=== PATIENT | male | born 1970 | race Caucasian/White ===

== ENCOUNTER 2021-09-12 08:54 | Outpatient (CLI) | payer OTHER, SELFPAY ==
--- NOTE | 2021-09-12 09:15 | MR_ITS ---
Final Report Patient: WAYNE SWANN Facility:?[facility] Patient ID:?[id number] Site Patient ID:?[id number]. Site :?[id number] Study:?MRI Spine Lumbar W/O-09/12/2021 9:53:59 AM Ordering Physician:Yumi Francisco Final Report: Indication: Lumbar spine pain with radiculopathy. Technique: T2, T1, and STIR sagittal as well as T1 and T2 axial sequences were obtained. No IV contrast. Comparison: Lumbar spine MRI 05/25/2016. Findings: There are 5 lumbar-type vertebral segments identified. The vertebral body heights are maintained without evidence of fracture. No marrow infiltrative process. Straightening of the lumbar lordosis. Inferior endplate Schmorl`s node at L4. The conus medullaris terminates at T12-L1, normal. Cauda equina appears unremarkable. T12-L1: No spinal canal or neural foraminal stenosis. L1-2: Mild disc height loss this occasion. Minimal disc bulge without spinal canal or neural foraminal narrowing. L2-3: Mild disc height loss and desiccation. Mild disc bulge couple ligamentum flavum thickening in facet hypertrophy resulting in mild spinal canal narrowing. It is stable. L3-4: Mild disc height loss and desiccation. Mild disc bulge coupled with ligamentum flavum thickening and facet hypertrophy resulting in mild spinal canal narrowing. No neural foraminal narrowing. Stable. L4-5: Moderate disc height loss and desiccation. Opposing endplate fatty marrow degenerative change. Interval development of a left subarticular disc protrusion which compresses the descending left L5 nerve. Mild right neural foraminal narrowing secondary to disc bulging facet hypertrophy. Left neural foramina is patent. L5-S1: Moderate disc height loss and desiccation. Postsurgical changes of right hemilaminectomy. Postsurgical changes of right lateral recess micro discectomy, with significantly improved previously noted right subarticular disc extrusion. Abnormal signal may represent granulation tissue or recurrent disc protrusion. This abuts the descending right S1 nerve. No neural foraminal narrowing. Mild sacroiliac joint osteoarthritis. Left renal cysts. Impression: 1. At L4-5, new left subarticular disc protrusion compressing the descending left L5 nerve. Mild right neural foraminal narrowing. 2. At L5-S1, postsurgical changes of right hemilaminectomy with microdiscectomy. Significantly improved right subarticular disc extrusion. Abnormal signal in the right lateral recess could represent recurrent/residual disc protrusion or granulation tissue abutting the descending right S1 nerve. 3. Stable milder degenerative changes throughout the remaining lumbar spine. Dictated by Mickey Mcpherson MD @ 09/12/2021 2:57:55 PM (Electronic Signature)
== END 2021-09-12 08:55 | disposition home or self-care (01) ==
LOC: MRI 08:54
PROVIDERS: PCP Physician Assistant Medical; Visit Provider Physician Assistant Medical
DX: M54.16 Radiculopathy, lumbar region (principal); M51.26 Other intervertebral disc displacement, lumbar region; M54.50 Low back pain, unspecified
CPT/HCPCS: 72148

== ENCOUNTER 2021-10-16 16:26 | Outpatient (CLI) | payer OTHER, SELFPAY ==
[2021-10-16 21:26] LABS: Chloride* 105 mmol/L (96-114); Potassium* 4.1 mmol/L (3.6-5.1); Sodium* 138 mmol/L (135-149)
[2021-10-16 21:29] LABS: Blood Urea Nitrogen* 16 mg/dL (7-30); Calcium* 9.7 mg/dL (8.4-10.6); Carbon Dioxide* 28 mmol/L (20-32); Creatinine* 0.9 mg/dL (0.5-1.5); Estimated Glomerular Filt Rate 103 ml/min; Glucose* 99 mg/dL (60-115)
== END 2021-10-16 16:27 | disposition home or self-care (01) ==
PROVIDERS: PCP Physician Assistant Medical; Visit Provider Physician Assistant Medical
DX: Z01.818 Encounter for other preprocedural examination (principal)
CPT/HCPCS: 80048; 87081; 87641

== ENCOUNTER 2021-11-20 10:08 | Emergency (ER) | payer OTHER, SELFPAY ==
[2021-11-20 10:15] VITALS: BP 157/111
--- NOTE | 2021-11-20 10:22 | CRLHL7_ITS ---
For Patients: As a result of the Century Cures Act, medical imaging exams and procedure reports are released immediately into your electronic medical record. You may view this report before your referring provider. If you have questions, please contact your health care provider. INDICATION: INJURY. FINGER VS TRAILOR HITCH TECHNIQUE: Finger radiographs 3 views COMPARISON: None FINDINGS: Bones: Alignment is normal. No acute fractures or aggressive bone lesions are identified. Joint spaces: The metacarpophalangeal and interphalangeal joints are normal in appearance. Soft tissues: Soft tissue injury at distal margin of the right 2nd finger. No radiopaque soft tissue foreign body. IMPRESSION: 1. Right 2nd finger soft tissue injury. No acute fracture or soft tissue foreign body. Dictated by Raul Abraham MD @ 11/20/2021 11:11:01 AM Dictated by: Raul Abraham MD @ 11/20/2021 11:11:08 (Electronically Signed)
[2021-11-20] MEDS: HYDROCODONE/ACETAMIN 7.5-325 TABLET 1 TAB PO (10:25)
[2021-11-20 10:27] VITALS: BP 157/111; PULSE 94; TEMP 37.1; O2SAT 98; BMI 29.5
--- NOTE | 2021-11-20 10:29 | ED.NURSE ---
Pt R index finger wound soaking in sterile water and hibiclens.
[2021-11-20] MEDS: TETANUS/DIPHTH/PERTUSSIS 0.5 ML SYRINGE IM (10:33)
[2021-11-20] MEDS: cephALEXin 500 MG CAPSULE PO (10:33)
[2021-11-20 10:40] VITALS: BP 144/102
--- NOTE | 2021-11-20 10:40 | ED.NURSE ---
in to bandage lac on pt R index finger. Wound packed with gelfoam and wrapped with gauze.
--- NOTE | 2021-11-20 10:43 | ED_ITS ---
HPI - General Adult General Time Seen by Provider: 10:43 Date Seen: 11/20/21 Chief complaint: Laceration/Wound Stated complaint: cut off tip of right pointer finger Time Seen by Provider: 11/20/21 10:22 Source: patient Mode of arrival: ambulatory Limitations: no limitations History of Present Illness HPI narrative: Patient is a 51 year white male who cut off the pad of his index finger on the right when he got caught between a ice fishing house trailer. He does not really feel like he hurt the bone but avulsed the pad from about the D IP joint to the tip he comes in with that wrapped. He is unsure of last tetanus shot he has been pretty healthy in the past. , no history of wound healing issues. He does out of glass repair. They did bring in the chunk of skin which was avulsed. Related Data Home Medications Medication Instructions Recorded Confirmed bupropion HCl 150 mg tablet,12 hr mg PO BID 10/16/21 10/16/21 sustained-release cyclobenzaprine 10 mg tablet 10 mg PO .Bedtime as needed PRN 10/16/21 10/16/21 gabapentin 300 mg capsule mg PO TID 10/16/21 10/16/21 Previous Rx's Medication Instructions Recorded metoprolol succinate 25 mg 12.5 mg PO QDAY #45 tabs 10/16/21 tablet,extended release 24 hr cephalexin 500 mg capsule 500 mg PO QID #20 caps 11/20/21 cephalexin 500 mg capsule 500 mg PO QID #20 caps 11/20/21 hydrocodone 7.5 mg-acetaminophen 1 tab PO Q6-8H PRN pain #20 tabs 11/20/21 325 mg tablet hydrocodone 7.5 mg-acetaminophen 1 tab PO Q6H PRN pain #20 tabs 11/20/21 325 mg tablet Allergies Allergy/AdvReac Type Severity Reaction Status Date / Time No Known Allergies Allergy Unverified 10/16/21 15:47 Review of Systems Status of ROS: Reports: 6 or more systems reviewed and unremarkable except as noted in History and below [facility] Surgical History History of spinal surgery (06/2016) Family History Father High blood pressure Family/Other Coronary artery disease Social History Narrative: does not use illicit drugs occasional alcohol consumption smoker- approximately 1 pack per day Smoking Status: Current every day smoker What tobacco products do you use: cigarettes Do you use any of these nicotine containing products: None Second hand tobacco smoke exposure: No How often do you have a drink containing alcohol: 2-3 times a week How many standard drinks containing alcohol do you have on a typical day: 5 or 6 How often do you have six or more drinks on one occasion: Weekly AUDIT-C Alcohol total score: 8 Non-prescribed substance use: denies use Exam Narrative: Exam Narrative: Objective: The right index finger shows avulsion of skin non repairable of the D IP pad from just distal to the D IP joint volarly to the tip there is a good amount of soft tissue remaining, but he did avulse is fairly deeply, no obvious tendon or bone visualization. Procedure: After sterile soaking Gel-Foam placed over the finger pad and covered with quarter-inch gauze, he was given updated Tdap, Keflex 500 orally, [place] 7.5 mg now. Will check an x-ray of his finger. He will need to follow up with Orthopedics in the next 3-5 days. Light activity and light use of the hand. Will put a finger dressing on after confirming that there was no additional bleeding. Const: Vital Signs, click to edit/add: Vital Signs - 24 hr 11/20/21 10:27 Temperature 98.7 F Pulse Rate [Left] 94 Blood Pressure [Le ft Upper Arm] 157/111 H Pulse Oximetry 98 Oxygen Delivery Me thod Room Air Course Vital Signs Vital signs: Initial Vital Signs Temperature 98.7 F 11/20/21 10:27 Temperature Source Temporal Artery Scan 11/20/21 10:27 Pulse Rate 94 11/20/21 10:27 Blood Pressure 157/111 H 11/20/21 10:27 Blood Pressure Mean 126 11/20/21 10:27 Blood Pressure Position Supine 11/20/21 10:27 Pulse Oximetry 98 11/20/21 10:27 Oxygen Delivery Method 11/20/21 10:27 Vital Signs Temperature 98.7 F 11/20/21 10:27 Pulse Rate 94 11/20/21 10:27 Blood Pressure 157/111 H 11/20/21 10:27 Pulse Oximetry 98 11/20/21 10:27 Oxygen Delivery Method 11/20/21 10:27 Temperature 98.7 F 11/20/21 10:27 Pulse Rate 94 11/20/21 10:27 Blood Pressure 157/111 H 11/20/21 10:27 Pulse Oximetry 98 11/20/21 10:27 Oxygen Delivery Method 11/20/21 10:27 Medical Decision Making MDM Narrative Medical decision making narrative: The patient has on x-ray by my read no bony a abnormality, recommend follow-up in Ortho 3 days, Keflex and [place] as needed at home. Discharge Plan Discharge Clinical Impression: Avulsion of skin of index finger Patient Disposition: Home w/ Parent or Adult Condition: Stable Additional Instructions: Keep covered for 3 days, orthopedic followup at that time, Keflex 500 q.i.d. x5 days, [place] as needed for pain, do not drink or drive with the [place], may use Advil as well for discomfort. Elevate when at rest. Return sooner if problems or concerns. please schedule ortho appt with PA for 3 days Activity Level: Light activity Discharge Diet: Regular Prescriptions: New cephalexin 500 mg capsule 500 mg PO QID Qty: 20 0RF hydrocodone-acetaminophen 7.5-325 mg tablet 1 tab PO Q6H PRN (Reason: pain) Qty: 20 0RF cephalexin 500 mg capsule 500 mg PO QID Qty: 20 0RF hydrocodone-acetaminophen 7.5-325 mg tablet 1 tab PO Q6-8H PRN (Reason: pain) Qty: 20 0RF No Action gabapentin 300 mg capsule PO TID bupropion HCl 150 mg tablet sustained-release 12 hr PO BID Rx Instructions: take 1 tablet twice daily for smoking cessation cyclobenzaprine 10 mg tablet 10 mg PO .Bedtime as needed PRN Rx Instructions: Take 1 tablet nightly for muscle tightness. Muscle relaxant metoprolol succinate 25 mg tablet extended release 24 hr 12.5 mg PO QDAY Qty: 45 0RF Rx Instructions: 1/2 tablet for blood pressure Follow Up/Referrals: Maryam Armendariz PA-C [Primary Care Provider] - Stand Alone Forms: [facility] Info Instructions
[2021-11-20 11:20] VITALS: PULSE 78; O2SAT 98
--- NOTE | 2021-11-20 11:37 | ED.NURSE ---
Pt R index finger bandaged with tube gauze.
== END 2021-11-20 11:56 | disposition home or self-care (01) ==
PROVIDERS: Emergency Provider Family Medicine; PCP Physician Assistant Medical
DX: S61.208A Unspecified open wound of other finger without damage to nail, initial encounter (principal)
CPT/HCPCS: 73140; 90471; 90715; 99283; A9270

== ENCOUNTER 2021-12-01 07:48 | Outpatient (CLI) | payer OTHER, SELFPAY | END 2021-12-01 07:49 | disposition home or self-care (01) | PROVIDERS: PCP Physician Assistant Medical; Visit Provider Physician Assistant Surgical | DX: S61.200A Unspecified open wound of right index finger without damage to nail, initial encounter (principal); W23.0XXA Caught, crushed, jammed, or pinched between moving objects, initial encounter; F17.210 Nicotine dependence, cigarettes, uncomplicated | CPT/HCPCS: 11042; 99213 ==

== ENCOUNTER 2021-12-08 07:50 | Outpatient (CLI) | payer OTHER, SELFPAY | END 2021-12-08 07:51 | disposition home or self-care (01) | LOC: WOUND 07:50 | PROVIDERS: PCP Physician Assistant Medical; Visit Provider Physician Assistant Surgical | DX: S61.200A Unspecified open wound of right index finger without damage to nail, initial encounter (principal); W23.0XXA Caught, crushed, jammed, or pinched between moving objects, initial encounter | CPT/HCPCS: 11042 ==

== ENCOUNTER 2021-12-15 07:44 | Outpatient (CLI) | payer OTHER, SELFPAY | END 2021-12-15 07:45 | disposition home or self-care (01) | LOC: WOUND 07:44 | PROVIDERS: PCP Physician Assistant Medical; Visit Provider Physician Assistant Surgical | DX: S61.200A Unspecified open wound of right index finger without damage to nail, initial encounter (principal); F17.210 Nicotine dependence, cigarettes, uncomplicated | CPT/HCPCS: 97597 ==

== ENCOUNTER 2021-12-29 07:52 | Outpatient (CLI) | payer OTHER, SELFPAY | END 2021-12-29 07:53 | disposition home or self-care (01) | LOC: WOUND 07:52 | PROVIDERS: PCP Physician Assistant Medical; Visit Provider Physician Assistant Surgical | DX: S61.200A Unspecified open wound of right index finger without damage to nail, initial encounter (principal); F17.210 Nicotine dependence, cigarettes, uncomplicated | CPT/HCPCS: 99212 ==

== ENCOUNTER 2022-03-13 08:34 | Outpatient (CLI) | payer OTHER, SELFPAY ==
--- NOTE | 2022-03-13 10:26 | W.ANESCHARGE ---
Anesthesia Charges Start Date/Time Anesthesia Start Date: 03/13/22 Anesthesia Start Time: 09:40 Stop Date/Time Anesthesia Stop Date: 03/13/22 Anesthesia Stop Time: 10:20 Summary Emergency: No
== END 2022-03-13 08:35 | disposition home or self-care (01) ==
LOC: OP CLINIC 08:35
PROVIDERS: PCP Physician Assistant Medical; Visit Provider Surgery
DX: Z12.11 Encounter for screening for malignant neoplasm of colon (principal); K63.5 Polyp of colon; Z80.0 Family history of malignant neoplasm of digestive organs; K22.2 Esophageal obstruction; R13.10 Dysphagia, unspecified
CPT/HCPCS: 00813; 43200; 45385; 88300; 88305